=== PATIENT | male | born 1960 ===

== ENCOUNTER 2024-11-21 02:59 | Outpatient (CLI) | payer BC, SELFPAY ==
--- NOTE | 2024-11-21 10:45 | DI.RAD_ITS ---
Exam(s) RF BARIUM SWALLOW EXAM: RF BARIUM SWALLOW CLINICAL HISTORY: APHASIA,R47.01,DYSPHAGIA,R13.10,DIZZINESS,R42 TECHNIQUE: 2D and realtime digital imaging was performed. CONTRAST MATERIAL: Thick and thin barium and barium tablet were administered. COMPARISON: No exams were available for comparison FINDINGS: The PA and lateral chest films show normal heart size and clear lung levy. The lateral parts assembler view of the neck shows mild degenerative changes. The patient had difficulty swallowing barium in the RPO position due to rib pain and nausea. Esophagus: Noevidence for mucosal erosions. Nofold thickening. No mass is visible. Nostricture. Motility: There is a normal primary stripping wave. Mild tertiary contractions were noted. There is no hiatal hernia. No evidence of aspiration or laryngeal penetration. IMPRESSION: Somewhat limited exam. Tertiary contractions. No evidence of stricture or hiatal hernia. RADIATION DOSE DELIVERED: charlie Ann=38.6 mGy
[2024-11-21] MEDS: Simethicone/Sod Bicarb/Cit Ac, 4 gram PACKET 1 PACKET PO (10:48)
[2024-11-21] MEDS: Barium Sulfate 98% W/W 140 ML BTL PO (10:49)
[2024-11-21] MEDS: Barium Sulfate 700 MG TAB PO (10:49)
[2024-11-21] MEDS: Barium Sulfate 60% W/V 355 ML BTL PO (10:51)
== END 2024-11-21 03:19 ==
PROVIDERS: PCP Nurse Practitioner Family; Visit Provider Nurse Practitioner Family
DX: R47.01 Aphasia (principal); R13.10 Dysphagia, unspecified; R42 Dizziness and giddiness
CPT/HCPCS: 74221; J3490

== ENCOUNTER 2024-11-30 00:52 | Outpatient (CLI) | payer BC, SELFPAY ==
--- NOTE | 2024-11-30 11:00 | DI.RAD_ITS ---
Exam(s) RF MODIFIED SPEECH BA SWALLOW TECHNIQUE: Modified barium swallow was performed in conjunction with speech pathology. CONTRAST MATERIAL: Oral barium Oral water soluble contrast was administered. COMPARISON: No exams were available for comparison FINDINGS: Fluoroscopy was provided by the radiologist for the speech pathologist during performance of modified barium swallow study. The radiologist was present in the fluoroscopy suite for this entire procedure. See separate speech pathologist report. There is no evidence of obvious aspiration on this study. IMPRESSION: No evidence of aspiration. See speech pathologist report. RADIATION DOSE DELIVERED: charlie Ann=24.9 mGy
[2024-11-30] MEDS: Barium Sulfate 700 MG TAB PO (11:05)
[2024-11-30] MEDS: Barium Sulfate 81% w/w for Oral Suspension 148 GM BTL PO (11:06)
[2024-11-30] MEDS: Barium Sulfate 40% W/V 240 ML BTL PO (11:07)
[2024-11-30] MEDS: Barium Sulfate Oral Paste 40% W/V 230 ML TUBE PO (11:08)
--- NOTE | 2024-11-30 12:58 | ST.MBS_ITS ---
Date of Service Date of service: 11/30/24 Time of Service: 10:30 Modified Barium Swallow Study Findings: Video fluoroscopic Swallowing Evaluation (VFSE) / Modified Barium Swallow Study (MBSS) Speech Language Pathology Report Patient referred for VFSE/MBSS from Kaylin Corley at the recommendation of his treating DIRECTOR PROSPECT given dysphagia symptoms. HPI & Patient report of function: Patient is a 64 year old M followed by [facility] DIRECTOR PROSPECT and referred by PCP for MBSS given dysphagia sx including pharyngeal globus sensation, difficulty/discomfort with pharyngeal swallow. After swallow, he sometimes feels an immediate need to vomit, and sometimes regurgitates. He had a regular barium swallow 1 week ago which indicated tertiary contractions but no other significant abnormalities, though exam was limited. IMPRESSIONS: Swallow safety is preserved; swallow efficiency is mildly impacted. Overall swallow function appears safe. There was no penetration or aspiration into the airway with any consistencies trialed. Mild-mod vallecular residue was noted for regular>puree>liquid textures, likely due largely to some reduced epiglottic inversion (good motility at the base, but tip of epiglottis remained variably upright) and very mild reduced approximation of tongue base and posterior pharyngeal wall especially in the hyperpharynx. Liquid wash was effective to resolve this for regular solids. No notable functional or anatomical abnormalities noted at the UES. Patient appears to be at low risk for potential aspiration PNA and/or pulmonary compromise and low risk for malnutrition, low risk for dehydration based on oral-pharyngeal swallow function alone. Diet modification is only indicated for patient preference/comfort. Given strength of oral-pharyngeal swallow function noted on exam, severity of patient reported function, and tertiary contractions noted on Barium Esophagram, if further workup is desired, next steps may include GI consult and c onsideration of esophageal manometry. RECOMMENDATIONS: Diet Texture Recommendation:? IDDSI LEVEL SOLIDS 7-Regular Solids - add moisture to dry foods as needed to improve pharyngeal clearance LIQUIDS 0-Thin Liquids Please see further details [email or web address] MEDICATIONS Whole with 0-Thin Liquids or TOLERATED FOR PATIENT COMFORT Diet texture modification is per patient's preference; please adjust diet textures at patient's discretion & collaboration with care team. Do not alter medications (e.g., cut)? without advice from your MD or pharmacist. Risk Management Strategies:? Behavioral reflux precautions, including upright position during + 90 mins after meals. Small bites, approx [id number] Alternate solids/liquids as able Multiple swallows per bolus to encourage clearance of pharyngeal stasis/residue Control risk factors for aspiration pneumonia via (a) thorough oral hygiene & (b) maintaining physical mobility as tolerated ----- OBJECTIVE Videofluoroscopic Swallow Evaluation (VFSE/MBSS) was conducted in the lateral and [id number] projection by Speech-Language Pathologist, in collaboration with Radiologist, to evaluate oropharyngeal swallow function. Anatomic view under fluoroscopy: WFL PO Barium Contrast Trials Oral barium water-soluble contrast was administered as follows: IDDSI Level 0 Varibar thin liquid (40% w/v) IDDSI Level 2 Varibar nectar thick/mildly thick liquid (40% w/v) IDDSI Level 4 Varibar pudding/pureed/extremely thick (40% w/v) IDDSI Level 7 Regular Solid: 1/2 carmen cracker coated in 3 mL Varibar pudding 13 mm barium tablet taken with water. MBSImP Component Scores: COMPONENT Scale SCORE 1 Lip closure (0-4) 1 Resulted in interlabial escape, without progression to anterior lip 2 Hold Position (0-3) 0 Maintained a cohesive bolus between tongue to palatal seal 3 Bolus Preparation (0-4) 0 Resulted in timely and efficient chewing and mashi ng 4 Bolus Transport (0-4) 0 Was with brisk tongue motion 5 Oral Residue (0-4) 1 Was a trace, lining oral structures 6 Swallow Initiation (0-4) 1 Occurred when the bolus head was in valleculae 7 Soft Palate Elevation (0-4) 0 Resulted in no bolus between soft palate and t he pharyngeal wall 8 Laryngeal Elevation (0-3) 0 Demonstrated complete superior movement of thyro id cartilage with complete approximation of arytenoids to epiglottic petiole 9 Anterior Hyoid Motion (0-2) 0 Demonstrated complete anterior movement 10 Epiglottic Movement (0-2) 1 Resulted in partial inversion 11 Laryngeal Closure (0-2) 0 Was complete with no air or contrast in laryngeal vestibule 12 Pharyngeal Stripping Wave (0-2) 0 Was present and complete 13 Pharyngeal Contraction (0-3) 0 Was complete 14 PES Opening (0-3) 0 Was completely distended and complete duration with no obstruction of flow 15 Tongue Base Retraction (0-4) 1 Allowed a trace column of contrast or air between tongue base and pharyngeal wall 16 Pharyngeal Residue (0-4) 2 Was a collection of residue within or on pharyngeal structures 17 Esophageal Clearance (0-4) 0 Was complete, with only a coating of contrast, if any Results: COMPONENT Scale SCORE 1 Oral Score (0-18) 1 2 Pharyngeal Score (0-29) 3 3 Esophageal Score (0-4) 0 Penetration-Aspiration Scale: COMPONENT Scale SCORE 1 Thin liquid (1-8) 1 Contrast did not enter the airway 2 [place] thick (1-8) 1 Contrast did not enter the airway 3 Honey thick (1-8) NA 4 Pudding thick (1-8) 1 Contrast did not enter the airway 5 Cookie (1-8) 1 Contrast did not enter the airway [place] Pharyngeal Residue Severity Rating Scale (YPRS) (Clover et al, 2015) Vallecula Residue Severity IV Moderate 25-50% Epiglottic ligament covered Pyriform Sinus Residue Severity II Trace 1-5% Trace coating of the mucosa Trialed Compensatory Strategies & Outcome: Maneuvers Successful (+) Unsuccessful (-) Postures Successful (+) Unsuccessful (-) 3 second Preparatory Set? ? [place] sture? ? Cough? ? Posterior Head tilt? Reflexive? Cued? Throat Clear? ? Head Tilt to? Reflexive? Left? Cued? Right? ? Saliva swallow? ?+ Head Turn/Rotate to? ? Supraglottic Swallow? Left? ? Super-supraglottic Swallow? Right? ? Bolus Modifications Successful (+) Unsuccessful (-) Delivery/Alternating Consistencies ? Follow with Liquid Wash + ? Follow with Solid Bolus? Delivery/Via Straw? ? Reduced Volume? Reduced Rate of Intake? ? Increased Viscosity? ?- Other:?? Thank you for allowing us to take part in this patient's care. Please feel free to contact the [facility] Speech Language Pathology Department with any questions/concerns.
== END 2024-11-30 01:12 ==
PROVIDERS: PCP Nurse Practitioner Family; Visit Provider Nurse Practitioner Family
DX: R47.01 Aphasia (principal); R13.10 Dysphagia, unspecified; R42 Dizziness and giddiness
CPT/HCPCS: 92526; 74221

== ENCOUNTER 2025-01-04 08:48 | Outpatient (CLI) | payer BC, SELFPAY ==
--- NOTE | 2025-01-04 08:45 | RT.EKG_ITS ---
APPROVED REPORT Exam: Resting ECG Reason for Exam: cardiac evaluation Patient Location: O HR:56 bpm ECG Measurements Heart Rate 56 AXIS SC 155 P 26 QRSd 83 QRS 28 QT 439 T 14 QTc 424 Conclusion Sinus rhythm...normal P axis, V-rate 50- 99 Atrial premature beats Otherwise normal
== END 2025-01-04 08:49 | disposition home or self-care (01) ==
LOC: DI.CARD 08:48
PROVIDERS: PCP Nurse Practitioner Family; Visit Provider Internal Medicine Cardiovascular Disease
DX: I49.5 Sick sinus syndrome (principal); I49.1 Atrial premature depolarization
CPT/HCPCS: 93010